=== PATIENT | female | born 1980 | race Asian ===

== ENCOUNTER 2019-12-11 08:48 | Emergency (ER) | payer OTHER ==
[~2019-12-11] VITALS: Ht 177.8 cm; Wt 68.0 kg
[2019-12-11 08:56] VITALS: TEMP 98.1
[2019-12-11 10:57] VITALS: BP 158/69
== END 2019-12-11 10:57 | disposition home or self-care (01) ==
LOC: ED 08:48
DX: S80.02XA Contusion of left knee, initial encounter (principal); W22.03XA Walked into furniture, initial encounter; Y92.091 Bathroom in other non-institutional residence as the place of occurrence of the external cause
CPT/HCPCS: 96372; 99283; J1885